=== PATIENT | female | born 1930 | race Caucasian/White ===

== ENCOUNTER 2021-01-19 12:33 | Outpatient (CLI) | payer MEDICARE | END 2021-01-19 12:34 | disposition home or self-care (01) | LOC: CSHULT 12:33 | PROVIDERS: ATTEND Internal Medicine | DX: I50.9 Heart failure, unspecified (principal); I51.89 Other ill-defined heart diseases; I35.0 Nonrheumatic aortic (valve) stenosis | CPT/HCPCS: 93306 ==